=== PATIENT | male | born 1995 | race Caucasian/White ===

== ENCOUNTER 2017-11-12 16:55 | Emergency (ER) | payer SELFPAY ==
[~2017-11-12] VITALS: Ht 175.3 cm; Wt 96.2 kg
--- NOTE | 2017-11-12 17:23 | NUR ---
PTIS IN ROOM #2B. DR FLAHERTY EVALUATED THE PT.
--- NOTE | 2017-11-12 19:16 | NUR ---
AT 18 45 PT WENT OUT TO SEE HIS FRIEND IN WAITING ROOM AND DID NOT COME BACK. DR MEIER WAS NOTIFIED.
== END 2017-11-12 19:17 | disposition left against medical advice (07) ==
LOC: ER 16:59
DX: Z53.21 Procedure and treatment not carried out due to patient leaving prior to being seen by health care provider (principal)
CPT/HCPCS: A4663